=== PATIENT | male | born 1975 | race Caucasian/White ===

== ENCOUNTER 2018-10-28 11:48 | Emergency (ER) | payer BC ==
[~2018-10-28] VITALS: Ht 188 cm; Wt 95.5 kg
[2018-10-28 11:50] VITALS: Ht 188 cm; Wt 95.5 kg
[2018-10-28] MEDS ORDERED: PROTONIX20 MG PO (11:52)
[2018-10-28] MEDS ORDERED: IBUPROFEN800 MG PO ×2 (11:52→13:43)
[2018-10-28] MEDS ORDERED: LOTENSIN20 MG PO (11:52)
[2018-10-28 12:37] LABS: BASOPHILS 0.2 % (0-2); EOSINOPHILS 1.6 % (0-7); HEMOGLOBIN 14.3 g/dL (13.5-17.5); IMMATURE GRANULOCYTES 0.3 % (0-5); LYMPHOCYTES 30.5 % (15-50); MCH 30.8 pg (26.0-34.0); MCHC 36.7 g/dL (31.0-37.0); MCV 83.9 fL (80.0-100.0); MONOCYTES 10.5 % (2-11); NEUTROPHILS 56.9 % (40-80); PLATELET COUNT 220 10x3/uL (130-400); RBC 4.65 10x6/uL (4.20-6.10); RDW 12.4 % (11.5-14.5); WBC 6.3 10x3/uL (4.8-10.8)
[2018-10-28 12:52] LABS: ANION GAP 15.1 mmol/L (8-16); BILIRUBIN - TOTAL 1.15 mg/dL (0.2-1.3); CARBON DIOXIDE 24.1 mmol/L (21.0-32.0); CREATININE - SERUM 1.2 mg/dL (0.6-1.3); POTASSIUM - SERUM 3.2 mmol/L (3.5-5.1)
[2018-10-28] MEDS ORDERED: CYCLOBENZAPRINE10 MG PO (13:43)
[2018-10-28] MEDS ORDERED: ACETAMINOPHEN500 M1 PO (13:43)
[2018-10-28 14:31] VITALS: BP 122/74
== END 2018-10-28 14:32 | disposition home or self-care (01) ==
LOC: D.ER 11:48
PROVIDERS: Family Medicine
DX: M79.18 Myalgia, other site (principal); V43.52XA Car driver injured in collision with other type car in traffic accident, initial encounter; Y93.89 Activity, other specified; Y92.410 Unspecified street and highway as the place of occurrence of the external cause

== ENCOUNTER → 2020-08-04 18:14 | Outpatient (CLI) | payer OTHER ==
[~2020-08-04 18:14] MED LIST: ACETAMINOPHEN500 M1 PO; CYCLOBENZAPRINE10 MG PO; IBUPROFEN800 MG PO; LOTENSIN20 MG PO; PROTONIX20 MG PO
[2020-08-04 18:21] LABS: BASOPHILS 0.5 % (0-2); EOSINOPHILS 2.7 % (0-7); HEMATOCRIT 45.1 % (42.0-54.0); HEMOGLOBIN 15.2 g/dL (13.5-17.5); IMMATURE GRANULOCYTES 1.1 % (0-5); LYMPHOCYTE ABS# 1.53 10x3/uL (1.32-3.57); LYMPHOCYTES 23.9 % (15-50); MCH 30.6 pg (26.0-34.0); MCHC 33.7 g/dL (31.0-37.0); MCV 90.7 fL (80.0-100.0); MEAN PLATELET VOLUME 10.9 fL (7.4-10.4); MONOCYTES 12.1 % (2-11); NEUTROPHIL ABS# 3.82 10x3/uL (1.78-5.38); NEUTROPHILS 59.7 % (40-80); PLATELET COUNT 273 10x3/uL (130-400); RBC 4.97 10x6/uL (4.20-6.10); RDW 12.5 % (11.5-14.5); WBC 6.4 10x3/uL (4.8-10.8)
[2020-08-04 19:30] LABS: ERYTHROCYTE SEDIMENTATION RATE 5 mm/hr (0-15)
== END | disposition home or self-care (01) ==
LOC: D.LABREF 18:14
PROVIDERS: Nurse Practitioner Family
DX: M25.561 Pain in right knee (principal)

== ENCOUNTER → 2020-08-07 10:06 | Outpatient (CLI) | payer OTHER ==
[2018-10-28 11:50] VITALS: BMI 27.0
== END | disposition home or self-care (01) ==
LOC: D.NM 10:00
PROVIDERS: ATTEND Nurse Practitioner Family
DX: M17.0 Bilateral primary osteoarthritis of knee (principal)